=== PATIENT | male | born 1955 | race Caucasian/White ===

== ENCOUNTER → 2019-03-02 | Outpatient (CLI) | payer BC | LOC: COL.VAS 12:42 | DX: Z82.49 Family history of ischemic heart disease and other diseases of the circulatory system (principal) ==

== ENCOUNTER → 2019-03-30 | Outpatient (CLI) | payer BC | LOC: COL.RAD 11:13 | DX: Z01.812 Encounter for preprocedural laboratory examination (principal); I77.810 Thoracic aortic ectasia; J18.1 Lobar pneumonia, unspecified organism; R91.1 Solitary pulmonary nodule | CPT/HCPCS: Q9967 ==